=== PATIENT | male | born 1985 | race African-American/Black ===

== ENCOUNTER 2018-06-17 19:52 | Emergency (ER) | payer MEDICAID ==
[2018-06-17 20:15] VITALS: BP 139/82
[2018-06-17] MEDS ORDERED: PENICILLIN VK 250MG PREPACK#6 BTL TAKEHOME ONE (20:18)
--- NOTE | 2018-06-17 20:18 | EDPHY ---
H & P Time Seen by Provider: 06/17/18 19:56 HPI/ROS: 33 yo M presents complaining of dental pain at the site where he had his wisdom teeth removed approximately 2 weeks ago. He states was quite painful at the time he went home and was not placed on antibiotics at that time. He then went to [place] for a week where he continued to have pain and presents today after his dentist appointment was canceled earlier today. He is able to swallow and eat but continues to have pain where his teeth were removed. He has no difficulty speaking or opening his mouth. He denies fevers or chills. Review of systems As per HPI General no fever no chills no weakness HEENT no eye pain no eye discharge. No eye redness, no sore throat Respiratory no cough, no shortness of breath Cardiac no chest pain, no peripheral edema GI no abdominal pain, no diarrhea, no constipation, no nausea, no vomiting no flank pain, no hematuria, no dysuria Musculoskeletal no myalgias, no joint pain Heme no easy bruising, no easy bleeding Endo no polyuria, no polydipsia Skin no rashes, no pruritus Neuro no syncope, no dizziness, no headaches Psych is no suicidal ideation, no homicidal ideation Past Medical/Surgical History: Non contributory Social History: Lives with family Denies excessive alcohol or drug use Does use medical marijuana Smoking Status: Former smoker Physical Exam: 33-year-old male alert and oriented no acute distress nontoxic appearance, afebrile Atraumatic normocephalic Oropharynx-no erythema, no trismus, no tongue swelling or elevation Gums appear well healed at site of wisdom tooth extraction bilaterally No erythema, no swelling, no drainage No preauricular adenopathy Neck supple, no lymphadenopathy Lungs clear to auscultation, no respiratory distress Heart regular rate and rhythm Skin no rash Constitutional: Initial Vital Signs Temperature (C) 36.7 C 06/17/18 20:10 Heart Rate 92 06/17/18 20:10 Respiratory Rate 16 06/17/18 20:10 Blood Pressure 139/82 H 06/17/18 20:10 O2 Sat (%) 99 06/17/18 20:10 O2 Delivery Mode Room Air Allergies/Adverse Reactions: Sulfa (Sulfonamide Antibiotics) Allergy (Verified 06/17/18 20:07) Home Medications: Medication Instructions Recorded Penicillin V Potassium [Penicillin 500 mg PO QID 8 Days #32 tablet 06/17/18 VK] Medical Decision Making ED Course/Re-evaluation: Patient seen and evaluated for pain at site of dental extraction Patient examined Impression/plan Post dental extraction pain Cannot rule out a deeper infection a in socket Patient to see dentist as soon as possible Will start patient on penicillin VK 500 four times daily Differential Diagnosis: Differential diagnosis considered but not limited to: Dental abscess, post extraction pain, postoperative pain, dry socket, periapical abscess - Data Points Medications Given: Discontinued Medications Penicillin V Potassium (Pen Vk 250 Mg Prepack#6) 1 btl TAKEHOME EDNOW ONE PRN Reason: Protocol Stop: 06/17/18 20:19 Last Admin: 06/17/18 20:27 Dose: 1 btl Departure - Departure Disposition: Home, Routine, Self-Care Clinical Impression: H/O wisdom tooth extraction, Pain, dental Condition: Good Instructions: Toothache (ED) Referrals: [facility] [Other] - As per Instructions Prescriptions: Penicillin V Potassium [Penicillin VK] 500 mg PO QID 8 Days #32 tablet
== END 2018-06-17 20:28 | disposition home or self-care (01) ==
LOC: CED 19:52
DX: K08.89 Other specified disorders of teeth and supporting structures (principal)
CPT/HCPCS: 99283-ER